=== PATIENT | male | born 1945 | race Two or more races ===

== ENCOUNTER 2020-11-06 04:30 | Emergency (ER) | payer MEDICARE ==
[~2020-11-06] VITALS: Ht 165.1 cm; Wt 59.0 kg
[2020-11-06] MEDS ORDERED: ONDANSETRON HCL 4MG/2ML INJ IV STA (05:10)
[2020-11-06 05:45] LABS: BASOPHILS % 1.1 % (0.0-2.0); EOSINOPHILS % 4.7 % (0.0-5.0); HEMATOCRIT. 38.9 % (42.0-52.0); LYMPHOCYTES % 31.8 % (20.0-50.0); MEAN CORPUSCULAR HEMOGLOBIN 30.6 pg (28.0-32.0); MEAN CORPUSCULAR VOLUME 91.7 fL (80.0-94.0); MEAN PLATELET VOLUME 8.7 fl (7.4-10.4); MONOCYTES % 8.8 % (2.0-8.0); NEUTROPHILS % 53.6 % (40.0-76.0); PLATELET 210 x1000/uL (130-400); RED BLOOD CELL COUNT 4.24 mill/uL (4.7-6.1); RED CELL DISTRIBUTION WIDTH 14.2 % (11.6-14.6)
[2020-11-06 05:54] LABS: CHLORIDE 105 mEq/L (98-107)
[2020-11-06 05:56] LABS: PROTHROMBIN TIME 10.4 sec (9.6-11.0)
[2020-11-06 06:29] LABS: CLARITY URINE CLEAR (CLEAR); COLOR URINE YELLOW (YELLOW); KETONES URINE NEGATIVE (NEGATIVE); LEUKOCYTE ESTERASE URINE NEGATIVE (NEGATIVE); NITRITE URINE NEGATIVE (NEGATIVE); OCCULT BLOOD URINE NEGATIVE (NEGATIVE); PROTEIN URINE NEGATIVE (NEGATIVE); SPECIFIC GRAVITY URINE 1.013 (1.005-1.030); UROBILINOGEN URINE 0.2 E.U./dL (0.2-1.0)
[2020-11-06] MEDS ORDERED: TOPUD PO (07:05)
[2020-11-06 08:45] VITALS: BP 120/70
== END 2020-11-06 08:48 | disposition home or self-care (01) ==
LOC: ER 04:30
DX: R10.13 Epigastric pain (principal); N40.0 Benign prostatic hyperplasia without lower urinary tract symptoms
CPT/HCPCS: 36415; 74176; 80053; 81003; 85025; 93005; 99285